=== PATIENT | female | born 2000 ===

== ENCOUNTER 2024-12-16 10:18 | Inpatient (IN) ==
[2024-12-16] MEDS: LACTATED RINGER'S 1,000 ML IV ONE (13:31)
--- NOTE | 2024-12-16 13:37 | History & Physical Report ---
Date of Service December 16, 2024 Assessment & Plan (1) Labor, prolonged latent phase: Plan: 24-year-old at 39 weeks and 3 days of gestation presenting today with irregular uterine contractions, prolonged latent phase, minimal cervical change, Vital signs stable afebrile, heart rate reassuring, GBS negative, Discussed the findings and options of either augmentation with oxytocin per protocol, AROM and deliver the baby versus expectant management, IV hydration and IV pain medication for now and then recheck in about 2 hours, Patient prefers to go into labor by herself, naturedly, and decided to get IV fluids and IV pain medications, Continue monitor closely, All questions were answered. (2) Uterine contractions at greater than 20 weeks of gestation: History of Present Illness Primary Care Provider: NO PCP patient is seen and examined. Patient is a 24-year-old at 39 weeks and 3 days of gestation who has been feeling contractions since yesterday when they were irregular. She slept until 5 AM and woke up with contractions this morning. They have been coming every 5 minutes since then. Pain level is 6-7 out of 10, she feels fine in between and walked around the hallway without any difficulties. She denies leakage of fluid or vaginal bleeding. She reports good movements. About 2 hours ago her nurse checked her cervix and it was 2 cm, 50% and -2 station. Her has been complicated by, 1. On Subutex, history of Percocet use, 2. On medical marijuana, Denies any medical problems, GBS negative. Allergies Allergy/AdvReac Type Severity Reaction Status Date / Time No Known Allergies Allergy Unverified 12/16/24 11:04 Home Medications Medication Instructions Recorded Confirmed Type Vitamin 1 tab PO DAILY 12/16/24 12/16/24 History buprenorphine HCl 2 mg sublingual 3 mg sublingual DAILY 12/16/24 12/16/24 History tablet Patient History Medical History Depression Abnormal Pap smear of cervix Substance abuse Anxiety Social History Smoking Status: Smoker, status unknown Tobacco Type: E-cigarettes / Vaping Cigarettes Per Day: 50 puffs/day; Second Hand Exposure: Yes; Do You Dip or Chew Tobacco: No; Hx Alcohol Use: No Hx Substance Use: Yes Substance Use Type Other:: Subutex - prescribed Preferred Language: [place] Communication Ability: Effective Rehabilitation Services Director Required: No Beliefs That Will Affect Care: None marital status: Single Current Living Situation: Significant Other Current Living Situation Comment: Pt lives with her boyfriend, Jewel Ruiz, and 3 cats Other Information That Helps Us Care for You: No Feels Safe at Home: Yes Safety Concerns: Feels Safe At This Time Assistive Devices: None Review of Systems as per Subjective / HPI Physical Exam Constitutional: WD/WN, vitals as above well developed, well nourished and comfortable Gastrointestinal (Abdomen): normal bowel sounds, soft, nontender, no hepatosplenomegaly ( Gravid) Genitourinary: normal external appearance OB Exam Abdomen: + vertex Manual OB Exam: + cervical dilation 3 cm (3-4), + cervical effacement 70% and + station -2 OB Exam Monitor Tracing: + external uterine monitor used and + category I Results & Data Vital Signs (Past 12 Hours) Vital Signs Temp Pulse Resp BP O2 Del Method 12/16/24 13:04 55 L 130/73 12/16/24 10:35 36.5 C 58 L 18 126/79 Room Air 12/16/24 10:29 58 L 126/79 12/16/24 10:23 18 12/16/24 10:23 36.5 C 18 Code Status & VTE Plan VTE Prophylaxis Plan VTE Prophylaxis will be ordered: No
[2024-12-16] MEDS: BUTORPHANOL TARTRATE 1 MG/ML VIAL IV ONE (14:13)
[2024-12-16] MEDS: LACTATED RINGER'S 1,000 ML IV SCH (14:35)
[2024-12-16] MEDS ORDERED: CALCIUM CARBONATE 500 MG CHEWABLE TAB PO PRN (15:20)
[2024-12-16] MEDS ORDERED: OXYTOCIN 30 UNITS/NSS 30 UNITS/500 ML BAG IV PRN (15:20)
[2024-12-16] MEDS ORDERED: LIDOCAINE 1% LOCAL 20 ML VIAL INFIL PRN (15:20)
--- NOTE | 2024-12-16 15:24 | Obstetrical Progress Note ---
Date of Service December 16, 2024 Subjective Patient states IV fluids and Stadol has not helped for her pain. Contractions are still every 4046 minutes, pain level is about the same and she does not think she can tolerate without epidural. She desires epidural for pain. Her cervix is 4 cm dilated, 70% effaced, head is -2 station, Discussed the findings and recommended augmentation with oxytocin per protocol and AROM when she has epidural and pain control. Patient agrees with plan. Reviewed her medical history, denies history of genital herpes, gonorrhea, she has a remote history of chlamydia when she was 16, treated and has been negative since then. She vapes nicotine daily, decrease the dose over the time. She was prescribed medical marijuana for anxiety and she uses it daily. last use was this morning. She had ultrasound this past week and EFW was 7 pound 2 ounce, All questions were answered, Plan to admit, monitor, labs, epidural for pain, oxytocin per protocol and then AROM when she is comfortable. Results & Data Vital Signs (Past 12 Hours) Vital Signs Temp Pulse Resp BP O2 Del Method 12/16/24 15:12 36.6 C 67 16 131/77 12/16/24 14:00 59 L 136/80 12/16/24 13:04 55 L 130/73 12/16/24 10:35 36.5 C 58 L 18 126/79 Room Air 12/16/24 10:29 58 L 126/79 12/16/24 10:23 18 12/16/24 10:23 36.5 C 18
[2024-12-16] MEDS: OXYTOCIN 30 UNITS/NSS 30 UNITS/500 ML BAG IV PRN (15:36)
--- NOTE | 2024-12-16 15:46 | Anesthesiology Consultation ---
Date of Service December 16, 2024 Assessment & Plan Chart Review Chart Review: Acceptable Risk for Surgery, Patient NOT seen in Pre Admission Testing and Acceptable Risk for Labor Epidural Consults Requested none ASA ASA2 Proposed Anesthesia Anesthesia Type: Labor Epidural and CSE History Height/Weight Height: 5 ft 5 in Weight: 80.286 kg Allergies Allergy/AdvReac Type Severity Reaction Status Date / Time No Known Allergies Allergy Unverified 12/16/24 11:04 Medications Home Medications Medication Instructions Recorded Confirmed Last Taken Vitamin 1 tab PO DAILY 12/16/24 12/16/24 12/15/24 21:00 buprenorphine HCl 2 mg sublingual 3 mg sublingual DAILY 12/16/24 12/16/24 12/16/24 08:00 tablet Active Medications Generic Name Dose Route Start Last Admin Trade Name Freq PRN Reason Stop Dose Admin Lactated Ringer's 1,000 mls @ 500 mls/hr 12/16/24 13:30 12/16/24 14:35 Lr IV 12/19/24 13:29 500 mls/hr .Q2H MAXIMUS Administration Oxytocin 30 units in 500 mls @ 2 mls/hr 12/16/24 15:24 12/16/24 15:36 Pitocin 30 Units/Nss IV 12/18/24 15:23 0.12 units/hr .Q24H PRN 2 mls/hr Labor Induction/Augmentation Administration Protocol 0.12 UNITS/HR Past Medical History Medical History Depression Abnormal Pap smear of cervix Substance abuse Anxiety obese GERD Vapes nicotine + marijuana use Hx/o percocet abuse Exercise / Class Metabolic Activity II 4-5 Yardwork/Stairs/Walk up hill Past Anesthesia History No Hx of Anesthesia Complications and No Family Hx of Anesthesia Complications History of PONV No Hx of PONV and No Hx of Motion Sickness Social History Smoking Status: Current every day smoker tobacco type: e-cigarettes Smoking cigarettes per day: 50 puffs/day Do You Dip or Chew Tobacco: No Hx Alcohol Use: No Hx Substance Use: Yes substance use type: marijuana and other Substance Use Type Other:: Subutex - prescribed Physical Exam Vital Signs Last Vital Signs Temp 36.6 C 12/16/24 15:12 Pulse 67 12/16/24 15:12 Resp 16 12/16/24 15:12 BP 131/77 12/16/24 15:12 O2 Del Method Room Air 12/16/24 10:35
[2024-12-16 15:50] LABS: Hematocrit (blood only) 34.4 % (37.0-47.0); Hemoglobin 11.8 g/dl (12.0-16.0); Mean Corpuscular Hemoglobin 28.9 pg (25.0-34.0); Mean Corpuscular Volume 84.3 fL (80.0-100.0); Platelet Count 185 K/uL (130-400); RDW Standard Deviation 37.7 fL (36.4-46.3); Red Blood Count 4.08 M/uL (4.20-5.40); White Blood Count 8.67 K/ul (4.8-10.8)
[2024-12-16 16:08] LABS: Alanine Aminotransferase 11.0 U/L (7-52); Albumin Globulin Ratio 1.1 (0.9-2); Alkaline Phosphatase 131.0 U/L (34-104); Anion Gap 9.0 (3-11); Bilirubin,Total 0.7 mg/dl (0.2-1.0); Blood Urea Nitrogen 9.0 mg/dl (6-23); Calcium 8.7 mg/dl (8.6-10.3); Carbon Dioxide 22.0 mmol/L (21-32); Chloride 105.0 mmol/L (98-107); Creatinine Clr Calc Pharmacy 147.7 ml/min; Globulin 2.8 gm/dl (2.5-4.0); Glucose 76.0 mg/dl (70-99(Fasting)); Potassium 3.6 mmol/L (3.5-5.1); Sodium 136.0 mmol/L (136-145); Total Protein 6.0 gm/dl (6.0-8.3)
[2024-12-16] MEDS: LACTATED RINGER'S 1,000 ML IV PRN (16:18)
[2024-12-16 16:24] LABS: Amphetamines+Metham, Urine Neg (Neg); MDMA (Ecstacy), Urine Neg (Neg); Marijuana, Urine Pos (Neg)
[2024-12-16] MEDS: BUPIVACAINE 0.25% PF 30 ML VIAL ONE (16:29)
[2024-12-16] MEDS ORDERED: ROPIVACAINE 0.5% PF 5 MG/ML 20 ML VIAL EPI PRN (16:39)
[2024-12-16] MEDS ORDERED: SODIUM CHLORIDE 0.9% PF INJ 10 ML VIAL EPI PRN (16:39)
[2024-12-16] MEDS ORDERED: LIDOCAINE 2% MPF LOCAL 5 ML VIAL EPI PRN (16:39)
[2024-12-16] MEDS ORDERED: NALOXONE HCL 1 MG in SODIUM CHLORIDE 0.9% 1,000 ML IV PRN (16:39)
[2024-12-16] MEDS ORDERED: PROMETHAZINE 6.25 MG/50.25 ML BAG IV PRN (16:39)
[2024-12-16] MEDS ORDERED: NALBUPHINE HCL INJ 10 MG/ML AMP IV PRN (16:39)
[2024-12-16] MEDS ORDERED: diphenhydrAMINE 50 MG/ML VIAL IV PRN (16:39)
[2024-12-16] MEDS ORDERED: NALOXONE HCL 0.4 MG/1 ML VIAL/CARP IV PRN (16:39)
[2024-12-16] MEDS: fentANYL 2 MCG/ML BUPIVacaine 0.125%-NSS 100ML BAG ONE (16:42)
[2024-12-16] MEDS: LIDOCAINE 2%/EPINEPHRINE 1:200,000 20 ML PF ONE (16:43)
[2024-12-16] MEDS: BUPIVACAINE 0.25% PF 30 ML VIAL EPI STA (16:59)
[2024-12-16] MEDS: LIDOCAINE 2%/EPINEPHRINE 1:200,000 20 ML PF EPI STA (17:00)
[2024-12-16] MEDS: SODIUM CHLORIDE 0.9% PF INJ 10 ML VIAL EPI STA (17:00)
--- NOTE | 2024-12-16 17:12 | Obstetrical Progress Note ---
Date of Service December 16, 2024 Assessment & Plan Admission and Anticipated Discharge Date Admission Date: December 16, 2024 Subjective Patient is reevaluated. She has received epidural and comfortable now. Vital signs stable afebrile, heart rate category 1, [place] contractions spaced out to every 4 to 6 minutes, oxytocin is at 4 mIU/min, Cervix is 4 cm dilated, 80% effaced, bulging bag, AROM clear fluid was obtained head at -2 station, anterior fontanelle is at the 9 o'clock position, Continue monitor closely augment contractions with Pitocin. Results & Data Vital Signs (Past 12 Hours) Vital Signs Temp Pulse Resp BP Pulse Ox O2 Del Method 12/16/24 17:06 52 L 109/68 12/16/24 17:05 63 99 12/16/24 17:01 60 120/62 12/16/24 17:00 62 98 12/16/24 16:55 99 12/16/24 16:55 65 12/16/24 16:55 71 125/70 12/16/24 16:50 99 12/16/24 16:50 59 L 12/16/24 16:50 55 L 117/65 12/16/24 16:48 68 115/64 12/16/24 16:46 55 L 115/64 12/16/24 16:45 55 L 99 12/16/24 16:44 65 115/64 12/16/24 16:42 56 L 108/59 L 12/16/24 16:41 57 L 122/57 L 12/16/24 16:40 57 L 99 12/16/24 16:38 59 L 107/72 12/16/24 16:36 64 121/65 12/16/24 16:35 61 99 12/16/24 16:34 55 L 119/70 12/16/24 16:32 65 121/68 12/16/24 16:30 74 127/73 98 12/16/24 16:28 78 136/75 12/16/24 16:26 74 133/79 12/16/24 16:25 79 98 12/16/24 16:24 85 135/91 12/16/24 16:22 71 131/77 12/16/24 16:20 100 12/16/24 16:20 72 12/16/24 16:20 61 147/81 H 12/16/24 16:15 70 99 12/16/24 16:14 60 126/83 12/16/24 16:12 61 121/81 12/16/24 16:10 72 99 12/16/24 16:05 60 100 12/16/24 15:12 36.6 C 67 16 131/77 12/16/24 14:00 59 L 136/80 12/16/24 13:04 55 L 130/73 12/16/24 10:35 36.5 C 58 L 18 126/79 Room Air 12/16/24 10:29 58 L 126/79 12/16/24 10:23 18 12/16/24 10:23 36.5 C 18
--- NOTE | 2024-12-16 19:52 | Obstetrical Progress Note ---
Date of Service December 16, 2024 Assessment & Plan Admission and Anticipated Discharge Date Admission Date: December 16, 2024 Subjective Patient feels pressure, pushed pain button VE; 8/ 80%/0 FHR categ I Continue to monitor closely Results & Data Vital Signs (Past 12 Hours) Vital Signs Temp Pulse Resp BP Pulse Ox O2 Del Method 12/16/24 19:45 82 100 12/16/24 19:40 58 L 99 12/16/24 19:35 69 100 12/16/24 19:34 63 125/87 12/16/24 19:30 65 99 12/16/24 19:25 64 98 12/16/24 19:20 80 100 12/16/24 19:17 60 118/70 12/16/24 19:15 60 100 12/16/24 19:10 62 100 12/16/24 19:05 62 100 12/16/24 19:04 59 L 118/68 12/16/24 19:00 63 18 100 12/16/24 18:55 64 100 12/16/24 18:50 83 100 12/16/24 18:48 75 119/94 12/16/24 18:45 63 100 12/16/24 18:40 65 100 12/16/24 18:35 60 100 12/16/24 18:33 73 122/72 12/16/24 18:30 65 100 12/16/24 18:25 52 L 100 12/16/24 18:20 73 100 12/16/24 18:18 54 L 125/73 12/16/24 18:15 55 L 99 12/16/24 18:10 54 L 100 12/16/24 18:05 56 L 100 12/16/24 18:04 55 L 126/73 12/16/24 18:00 51 L 99 12/16/24 17:55 51 L 99 12/16/24 17:50 54 L 99 12/16/24 17:49 55 L 123/77 12/16/24 17:45 57 L 99 12/16/24 17:40 56 L 99 12/16/24 17:35 59 L 100 12/16/24 17:34 70 126/85 12/16/24 17:30 69 100 12/16/24 17:25 60 99 12/16/24 17:20 60 100 12/16/24 17:16 16 12/16/24 17:16 36.7 C 16 12/16/24 17:15 57 L 119/74 99 12/16/24 17:11 54 L 117/70 12/16/24 17:10 59 L 99 12/16/24 17:06 52 L 109/68 12/16/24 17:05 63 99 12/16/24 17:01 60 120/62 12/16/24 17:00 62 98 12/16/24 16:55 99 12/16/24 16:55 65 12/16/24 16:55 71 125/70 12/16/24 16:50 99 12/16/24 16:50 59 L 12/16/24 16:50 55 L 117/65 12/16/24 16:48 68 115/64 12/16/24 16:46 55 L 115/64 12/16/24 16:45 55 L 99 12/16/24 16:44 65 115/64 12/16/24 16:42 56 L 108/59 L 12/16/24 16:41 57 L 122/57 L 12/16/24 16:40 57 L 99 12/16/24 16:38 59 L 107/72 12/16/24 16:36 64 121/65 12/16/24 16:35 61 99 12/16/24 16:34 55 L 119/70 12/16/24 16:32 65 121/68 12/16/24 16:30 74 127/73 98 12/16/24 16:28 78 136/75 12/16/24 16:26 74 133/79 12/16/24 16:25 79 98 12/16/24 16:24 85 135/91 12/16/24 16:22 71 131/77 12/16/24 16:20 100 12/16/24 16:20 72 12/16/24 16:20 61 147/81 H 12/16/24 16:15 70 99 12/16/24 16:14 60 126/83 12/16/24 16:12 61 121/81 12/16/24 16:10 72 99 12/16/24 16:05 60 100 12/16/24 15:12 36.6 C 67 16 131/77 12/16/24 14:00 59 L 136/80 09/06/25 13:04 55 L 130/73 09/06/25 10:35 36.5 C 58 L 18 126/79 Room Air 12/16/24 10:29 58 L 126/79 12/16/24 10:23 18 12/16/24 10:23 36.5 C 18
[2024-12-16] MEDS ORDERED: NURSING L&D Epidural Breakthrough Pain Update ONE (19:59)
[2024-12-16] MEDS: BUPIVACAINE 0.25% PF 30 ML VIAL EPI PRN (20:27)
--- NOTE | 2024-12-16 20:29 | Anesthesia Procedure Note ---
Date of Service December 16, 2024 Anesthesia Epidural Re-Dose Vital Signs Temp Pulse Resp BP Pulse Ox O2 Del Method 98.1 F 82 18 133/65 100 Room Air 12/16/24 17:16 12/16/24 20:27 12/16/24 19:00 12/16/24 20:27 12/16/24 20:12/16/24 10:35 Notes Pain Intensity: 2 Dilatation (cm): 8.0 Effacement (%): 80 Called by nursing to evaluate epidural as the patient is having increased pain. The epidural was re-dosed with the following medications (all medications via epidural route) after negative aspiration of the epidural catheter for CSF/HEME. 0.25% Bupivacaine (6ml) with 100 mcg Fentanyl After Epidural Re-Dose Mental Status: alert / awake / arousable Pain: improving with treatment Airway Patency, RR, SpO2: stable & adequate BP & HR: stable & adequate
--- NOTE | 2024-12-16 21:27 | Obstetrical Progress Note ---
Date of Service December 16, 2024 Assessment & Plan Admission and Anticipated Discharge Date Admission Date: December 16, 2024 Subjective Patient has received bolus from epidural and has been comfortable Started to feel pressure again VE; 9/ 90%/0 to +1 with ctx FHR categ I Continue to monitor Results & Data Vital Signs (Past 12 Hours) Vital Signs Temp Pulse Resp BP Pulse Ox O2 Del Method 12/16/24 21:22 80 120/80 12/16/24 21:20 73 100 12/16/24 21:15 72 99 12/16/24 21:10 71 100 12/16/24 21:07 64 130/69 12/16/24 21:05 73 100 12/16/24 21:00 76 100 12/16/24 20:55 68 100 12/16/24 20:52 65 108/66 12/16/24 20:50 68 99 12/16/24 20:45 70 100 12/16/24 20:40 78 99 12/16/24 20:35 86 121/67 98 12/16/24 20:34 93 H 132/74 12/16/24 20:30 84 99 12/16/24 20:29 69 142/64 H 12/16/24 20:27 82 133/65 12/16/24 20:25 85 100 12/16/24 20:20 68 99 12/16/24 20:18 78 130/62 12/16/24 20:15 89 100 12/16/24 20:10 65 100 12/16/24 20:05 79 100 12/16/24 20:00 83 99 12/16/24 19:55 74 100 12/16/24 19:50 71 100 12/16/24 19:45 82 100 12/16/24 19:40 58 L 99 12/16/24 19:35 69 100 12/16/24 19:34 63 125/87 12/16/24 19:30 65 99 12/16/24 19:25 64 98 12/16/24 19:20 80 100 12/16/24 19:17 60 118/70 12/16/24 19:15 60 100 12/16/24 19:10 62 100 12/16/24 19:05 62 100 12/16/24 19:04 59 L 118/68 12/16/24 19:00 63 18 100 12/16/24 18:55 64 100 12/16/24 18:50 83 100 12/16/24 18:48 75 119/94 12/16/24 18:45 63 100 12/16/24 18:40 65 100 12/16/24 18:35 60 100 12/16/24 18:33 73 122/72 12/16/24 18:30 65 100 12/16/24 18:25 52 L 100 12/16/24 18:20 73 100 12/16/24 18:18 54 L 125/73 12/16/24 18:15 55 L 99 12/16/24 18:10 54 L 100 12/16/24 18:05 56 L 100 12/16/24 18:04 55 L 126/73 12/16/24 18:00 51 L 99 12/16/24 17:55 51 L 99 12/16/24 17:50 54 L 99 12/16/24 17:49 55 L 123/77 12/16/24 17:45 57 L 99 12/16/24 17:40 56 L 99 12/16/24 17:35 59 L 100 12/16/24 17:34 70 126/85 12/16/24 17:30 69 100 12/16/24 17:25 60 99 12/16/24 17:20 60 100 12/16/24 17:16 16 12/16/24 17:16 36.7 C 16 12/16/24 17:15 57 L 119/74 99 12/16/24 17:11 54 L 117/70 12/16/24 17:10 59 L 99 12/16/24 17:06 52 L 109/68 12/16/24 17:05 63 99 12/16/24 17:01 60 120/62 12/16/24 17:00 62 98 12/16/24 16:55 99 12/16/24 16:55 65 12/16/24 16:55 71 125/70 12/16/24 16:50 99 12/16/24 16:50 59 L 12/16/24 16:50 55 L 117/65 12/16/24 16:48 68 115/64 12/16/24 16:46 55 L 115/64 12/16/24 16:45 55 L 99 12/16/24 16:44 65 115/64 12/16/24 16:42 56 L 108/59 L 12/16/24 16:41 57 L 122/57 L 12/16/24 16:40 57 L 99 12/16/24 16:38 59 L 107/72 12/16/24 16:36 64 121/65 12/16/24 16:35 61 99 12/16/24 16:34 55 L 119/70 12/16/24 16:32 65 121/68 12/16/24 16:30 74 127/73 98 12/16/24 16:28 78 136/75 12/16/24 16:26 74 133/79 12/16/24 16:25 79 98 12/16/24 16:24 85 135/91 12/16/24 16:22 71 131/77 12/16/24 16:20 100 12/16/24 16:20 72 12/16/24 16:20 61 147/81 H 12/16/24 16:15 70 99 12/16/24 16:14 60 126/83 12/16/24 16:12 61 121/81 12/16/24 16:10 72 99 12/16/24 16:05 60 100 12/16/24 15:12 36.6 C 67 16 131/77 12/16/24 14:00 59 L 136/80 12/16/24 13:04 55 L 130/73 12/16/24 10:35 36.5 C 58 L 18 126/79 Room Air 12/16/24 10:29 58 L 126/79 12/16/24 10:23 18 12/16/24 10:23 36.5 C 18
[2024-12-16] MEDS: fentANYL 2 MCG/ML BUPIVacaine 0.125%-NSS 100ML BAG EPI PRN (22:26)
[2024-12-16] MEDS: ONDANSETRON INJ 2 MG/ML 2 ML VIAL IV PRN (23:16)
[2024-12-17] MEDS ORDERED: OXYTOCIN 30 UNITS/NSS 30 UNITS/500 ML BAG IV PRN (00:02)
[2024-12-17] MEDS ORDERED: HYDROCORTISONE ACETATE 25 MG SUPP PR PRN (00:02)
[2024-12-17] MEDS ORDERED: DIPHTHER/TETAN/PERTUS Vaccine (Tdap, Adol/Adult) 0.5mL IM ONE (00:02)
--- NOTE | 2024-12-17 00:07 | Delivery Summary ---
Vaginal Delivery Summary Date of Service December 17, 2024 Vaginal Delivery Summary Patient was found to be fully dilated and desires to push. She pushed for about 40 min and delivered the head and then shoulders with minimal traction. Loose nuchal cordx1, reduced. The baby was handed off to the mother. The cord was clampedx2 and cut at 1 minute. The vagina and perineum were checked and found to have 1st degree left labial laceration. It was repaired with 3/0 vicryl in continuous fashion. The placenta was delivered spontaneously as intact and complete. The uterus was explored and found to be empty. QBL was 215 ml. The fundus was firm The baby was a viable male infant, Apgars 8/9, the weight is pending The mother and the baby tolerated the procedure well. No complications happened and I was present during whole procedure.
[2024-12-17] MEDS: IBUPROFEN 600 MG TAB PO PRN (02:54)
[2024-12-17] MEDS: BENZOCAINE 20% SPRY 85 APPLN/85 GM CAN EXT PRN (07:12)
[2024-12-17] MEDS: ACETAMINOPHEN 500 MG TAB PO PRN (08:15)
[2024-12-17] MEDS: FERROUS SULFATE 325 MG TAB PO SCH (08:16)
[2024-12-17] MEDS: PRENATAL VITAMIN 1 TAB PO SCH (08:17)
[2024-12-17] MEDS: DOCUSATE SODIUM 100 MG CAP PO SCH (08:17)
--- NOTE | 2024-12-17 08:21 | Anesthesia Procedure Note ---
Date of Service December 17, 2024 Anesthesia Post Epidural Note Vital Signs Vital Signs: Temp Pulse Resp BP Pulse Ox O2 Del Method 36.8 C 73 16 122/83 97 Room Air 12/17/24 07:12/17/24 07:12/17/24 07:20 12/17/24 07:20 12/17/24 07:12/17/24 07:20 Pain Intensity Abdomen: Pain Intensity: 3 Notes Mental Status: alert / awake / arousable Nausea / Vomiting: adequately controlled Pain: adequately controlled Airway Patency, RR, SpO2: stable & adequate BP & HR: stable & adequate Hydration State: stable & adequate Neuraxial Anesthesia: was administered and sensory block is resolving Anesthetic Complications: no major complications apparent Epidural: Removed without complications and With tip intact
[2024-12-17] MEDS: ACETAMINOPHEN 325 MG TAB PO PRN (12:10)
--- NOTE | 2024-12-17 12:34 | Obstetrical Progress Note ---
Date of Service December 17, 2024 Assessment & Plan Admission and Anticipated Discharge Date Admission Date: December 16, 2024 Subjective Patient is seen and examined. She feels well, no complaints. Ambulating without dizziness Voiding without difficulty Tolerating regular diet with out N&V Bleeding is minimal No fever/ chills/ CP/ SOB/ N&V/ Leg pain Breast and bottle feeding without problems Vital Signs Temp Pulse Resp BP Pulse Ox O2 Del Method 12/17/24 12:02 36.7 C 76 18 132/83 Room Air 12/17/24 07:20 36.8 C 73 16 122/83 97 Room Air 12/17/24 02:45 37.0 C 63 16 124/75 97 Room Air PE: General: Alert, orientedx3, NAD Abd: soft, NT, fundus firm, below Umbilicus Perineum intact, Lochia rubra minimal Ext; NT, no edema AP: 24 yo s/p , ppd# 1 VSS Afebrile doing well Continue routine care All questions were answered D/C home tomorrow Results & Data Vital Signs (Past 12 Hours) Vital Signs Temp Pulse Resp BP Pulse Ox O2 Del Method 12/17/24 12:02 36.7 C 76 18 132/83 Room Air 12/17/24 07:20 36.8 C 73 16 122/83 97 Room Air 12/17/24 02:45 37.0 C 63 16 124/75 97 Room Air
[2024-12-17] MEDS: SODIUM CHLORIDE 0.9% PF INJ 10 ML VIAL ONE (12:39)
[2024-12-17] MEDS: MEASLES, MUMPS & RUBELLA VIRUS VACCINE (MMR) 0.5ML VIAL SQ ONE (12:39)
[2024-12-18 08:01] LABS: Hematocrit (blood only) 30.0 % (37.0-47.0); Hemoglobin 10.0 g/dl (12.0-16.0); Mean Corpuscular Hemoglobin 28.8 pg (25.0-34.0); Mean Corpuscular Volume 86.5 fL (80.0-100.0); Platelet Count 191 K/uL (130-400); RDW Standard Deviation 39.8 fL (36.4-46.3); Red Blood Count 3.47 M/uL (4.20-5.40); White Blood Count 9.25 K/ul (4.8-10.8)
--- NOTE | 2024-12-18 08:49 | Obstetrical Progress Note ---
Date of Service December 18, 2024 Assessment & Plan Admission and Anticipated Discharge Date Admission Date: December 16, 2024 Subjective abdomen soft and non tender no calf tenderness ambulating well vaginal bleeding scant hgb 10.0 Results & Data Vital Signs (Past 12 Hours) Vital Signs Temp Pulse Resp BP Pulse Ox O2 Del Method 12/18/24 08:00 36.6 C 68 16 123/81 96 Room Air 12/18/24 03:24 137/94 12/18/24 03:06 36.6 C 87 18 97 Room Air 12/17/24 23:55 36.8 C 67 18 126/83 99 Room Air 12/17/24 22:54 36.4 C L 88 18 138/87 97 Room Air
[2024-12-18 18:09] VITALS: BP 137/85; PULSE 92; RESP 18; TEMP 99.1; O2SAT 100
--- NOTE | 2024-12-19 09:37 | Coding Query ---
CODING QUERY To promote full compliance with coding requirements relating to patient care, provider participation is requested in all cases of seafood specialist uncertainty. Please assist us with the question(s) below: Coding Question(s): The Vaginal Delivery Summary documents Date of Service to be 12/17/24, however this is conflicting with the Date of Delivery in EMR of 12/16/24. Please clarify/confirm the Date of Delivery below, due to conflicting dates in EMR/Record: (x ) Date of Delivery was 12/16/24 ( ) Date of Delivery was 12/17/24 ( ) Date of Delivery was Other Date: Please Specify___Delivery time was close to midnight, so it some time for delivery of placenta and repair of vagina before delivery note was placed in her records. Physician's Response(s): Thank you Leena Winkler Principal Diagnosis: "that condition established after study, to be chiefly responsible for occasioning the admission of the patient to the hospital for care." Co-Existing Principal Diagnosis: "when two or more diagnoses equally meet the criteria for principal diagnosis as determined by the circumstances of admission, diagnostic work up, and/or therapy provided, and the Alphabetic Index, Tabular List, or another coding guideline does not provide sequencing direction, any one of the diagnoses may be sequenced first." "When the physician has documented what appears to be a current diagnosis in the body of the record, but has not included the diagnosis in the final diagnostic statement, the physician should be asked whether the diagnosis should be added." (Source [facility]oding [facility] 2 QTR90. p3-4) SATYA
[2024-12-21 10:43] LABS: Marijuana Quant, GCMS Urine 361 ng/mL (<5)
== END 2024-12-18 18:23 | disposition home or self-care (01) | DRG 806 ==
LOC: OPB 10:18 → 4S1 10:22 → 4E2 12-17 02:29